=== PATIENT | female | born 1975 | race Caucasian/White ===

== ENCOUNTER 2017-06-22 11:11 | Outpatient (CLI) | payer OTHER, MEDICAID | END 2017-06-22 17:11 | disposition home or self-care (01) | LOC: SCT 11:11 | PROVIDERS: ATTEND Internal Medicine Cardiovascular Disease | DX: J32.9 Chronic sinusitis, unspecified (principal); J34.2 Deviated nasal septum | CPT/HCPCS: 70450-TC; 70486-TC ==